=== PATIENT | female | born 1985 | race Two or more races ===

== ENCOUNTER 2017-09-29 15:18 | Emergency (ER) | payer OTHER ==
[2017-09-29] MEDS ORDERED: NS 1,000 ML IV ONE (16:34)
[2017-09-29 17:05] LABS: PLATELET COUNT 286 10^3/uL (150-400)
--- NOTE | 2017-09-29 17:50 | EDPHY ---
HPI/HX/ROS/PE/MDM Narrative: CHIEF COMPLAINT: Vaginal bleeding, 7 to 10 weeks HISTORY OF PRESENT ILLNESS: The patient is a G1, P0 32 y/o female complaining of vaginal bleeding. Her last menstrual period was July 18. She had an ultrasound at [facility] about 2 weeks ago was told that she was 5 weeks 5 days . For some reason she had a 2nd ultrasound performed a week later and was told that she was 10 weeks . Unclear if a pole or cardiac activity was ever seen on the ultrasound. Today, she noticed some vaginal bleeding. She denies clots and describes the blood as light spotting. She has some associated right-sided cramping. She denies nausea, headache, vomiting, fever, or any other associate symptoms. She reports this is her first . She denies appendectomy. No fever, chills, chest pain, shortness of breath, palpitations, vomiting, diarrhea, urinary complaints, headache, lightheadedness. REVIEW OF SYSTEMS: Aside from elements discussed in the HPI, a comprehensive 10-point review of systems was reviewed and is negative. 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 HEENT: Atraumatic. Eyes: No icterus, no injection. Mouth: moist mucous membranes. No erythema or lesions. Neck: supple with no adenopathy. LUNGS: Clear to auscultation bilaterally, no wheezes, rhonchi or rales. CARDIAC: Regular rate and rhythm, no rubs, murmurs or gallops. ABDOMEN: Soft, no abdominal tenderness. No suprapubic or adnexal tenderness. BACK: No CVA tenderness. EXTREMITIES: No trauma. No edema. Range of motion is normal throughout. NEURO: Alert and oriented, grossly nonfocal. SKIN: Warm and dry, no rash. PSYCHIATRIC: Normal mentation, no agitation. ED Course: The patient presents with vaginal bleeding while . No documentation of an IUP. Exam is normal. Plan for ultrasound and quantitative beta-HCG. Blood type O positive. Ultrasound shows no IUP, there is a gestational sac in the uterus measuring approximately 10 weeks. 6:15 [place] [address]. Patient is resting comfortably. She has no cramping. Her vaginal bleeding has stopped. 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 We discussed the ultrasound results and her quantitative HCG. I discussed with the patient the possibility that she has had a demise, missed , or an ectopic . She understands that with a quantitative HCG of 14,000, there should be a visible intrauterine if 1 is present. She understands the importance of following up for repeat quantitative HCG. She understands reasons to return to the emergency department including increased vaginal bleeding, passage of tissue, lightheadedness, dizziness, increased abdominal pain, or other concerns. 7:35 PM- patient's course was discussed with Dr. Shaw, on-call for [facility]. Patient will have a repeat quantitative HCG performed at [facility] in 2 days. MDM: Differential diagnosis of the patient's vaginal bleeding includes dysfunctional uterine bleeding, threatened miscarriage, spontaneous miscarriage, incomplete miscarriage, ectopic , trauma, cervicitis, ovarian cysts, uterine fibroids, uterine cancer, cervical cancer, and infection. - Data Points Imaging Results: OB US Impression: 1. Findings suspicious for, yet not diagnostic of, failed . Based on the criteria and recommendations, the Society of Radiology and Ultrasound recommend follow-up sonogram in 7-10 days. 2. Normal ovaries. No evidence of ectopic . Findings discussed with Emergency Department physician, Deepthi Wright M.D., on September 29, 2017 at 1826. Dictated By: Jeremias White MD Laboratory Results: Laboratory Results 09/29/17 16:50 09/29/17 16:50 Medications Given: Discontinued Medications Sodium Chloride (Ns) 1,000 mls @ 0 mls/hr IV ONCE ONE; Wide Open PRN Reason: Protocol Stop: 09/29/17 16:35 Last Admin: 09/29/17 17:00 Dose: 1,000 mls General Time Seen by Provider: 09/29/17 16:32 Initial Vital Signs: Initial Vital Signs Temperature (C) 36.7 C 09/29/17 15:22 Heart Rate 74 09/29/17 15:22 Respiratory Rate 18 09/29/17 15:22 Blood Pressure 137/80 H 09/29/17 15:22 O2 Sat (%) 98 09/29/17 15:22 O2 Delivery Mode Room Air Allergies/Adverse Reactions: No Known Allergies Allergy (Verified 09/29/17 15:22) Home Medications: Medication Instructions Recorded Miscellaneous Medical Supply [NO 1 ea MISC AD 05/06/12 HOME MEDS] Departure - Departure Disposition: Home, Routine, Self-Care Clinical Impression: Vaginal bleeding in patient at less than 20 weeks gestation, Possible spontaneous miscarriage Condition: Good Instructions: Miscarriage (ED), First Trimester Vaginal Bleed (ED) Additional Instructions: Follow up on Sunday at [facility] without fail for a follow-up quantitative beta-HCG. Your quantitative HCG today is 14,174. Return to the emergency department or seek care urgently if you developed worse bleeding, increased pain, fainting, or other concerns.. There is a chance that this may be a a in the tubes or ovaries, or that you may have miscarried. [place] bladimir de seguimiento el en [facility] sin falta para chequeo de beta-HCG cuantitativa. Segundo HCG cuantitativa hoy es 14,174. Regrese al departamento de emergencias o busque atencion urgent si desarrolla un sangrado peor, aumento el dolor, desmayos u otras preocupaciones. Existe la posibilidad de que esto se un embarazo en los tubos o los ovarios, o que hay abortado. Referrals: NONE *PRIMARY CARE P,. [Primary Care Provider] - As per Instructions [facility],. [Clinic] - As per Instructions Print Language: Setswana Report Scribed for: Deepthi Wright Report Scribed by: Renetta Cruz Date of Report: 09/29/17 Time of Report: 18:04 Physician Review and Approval Statement: Portions of this note were transcribed by a special forces medical sergeant. I personally performed a history, physical exam, medical decision making, and confirmed accuracy of information the transcribed note.
[2017-09-29 18:16] VITALS: RESP 16
[2017-09-29 20:04] VITALS: BP 134/78; PULSE 79; TEMP 98.6; O2SAT 99
== END 2017-09-29 20:02 | disposition home or self-care (01) ==
DX: O20.8 Other hemorrhage in early pregnancy (principal); E86.9 Volume depletion, unspecified; Z3A.10 10 weeks gestation of pregnancy